=== PATIENT | female | born 1960 | race Two or more races ===

== ENCOUNTER 2017-10-31 20:25 | Emergency (ER) | payer BC ==
[~2017-10-31] VITALS: Ht 157.5 cm; Wt 87.4 kg
[~2017-10-31 20:25] MED LIST: NAPROSYN500 MG PO; PERCOCET 5/31 TABLET PO; PRILOSEC40 MG PO; ZOFRAN4 MG PO
[2017-10-31 21:14] LABS: HEMATOCRIT 40.1 % (36.0-46.0); HEMOGLOBIN 13.5 G/DL (11.9-15.5); MCH 29.5 PG (29.0-34.0); MCHC 33.7 G/DL (30.0-36.0); MCV 87.6 FL (83-99); PLATELET COUNT 256 K/uL (156-360); RBC DIS.WIDTH-CV 12.6 % (11.8-14.6); RBC DIS.WIDTH-SD 40.2 % (39-53); RED BLOOD COUNT 4.58 M/uL (3.80-5.20); WHITE BLOOD COUNT 12.4 K/uL (4.1-10.2)
[2017-10-31 21:24] LABS: ALBUMIN 4.4 g/dL (3.2-4.8); CHLORIDE 104 mEq/L (99-109); SODIUM 140 mEq/L (136-147)
[2017-10-31 21:26] LABS: GLUCOSE 139 mg/dL (70-99); TOTAL PROTEIN 8.3 g/dL (6.4-8.3)
[2017-10-31 21:28] LABS: TOTAL BILIRUBIN 0.3 mg/dL (0.0-1.0)
[2017-10-31 21:30] LABS: ALKALINE PHOSPHATASE 71 IU/L (3-129); CREATININE 0.8 mg/dL (0.6-1.3); GFR ESTIMATE (CALCULATED) > 59 mL/min/
[2017-10-31 21:31] LABS: AST (GOT) 36 IU/L (2-34); UREA NITROGEN (BUN) 15 mg/dL (9-23)
[2017-10-31 21:33] LABS: ALT (GPT) 41 IU/L (3-49)
[2017-10-31 21:35] LABS: QUANTITATIVE HCG < 4.0 MIU/ML
[2017-10-31 21:44] LABS: APPEARANCE CLEAR ((CLEAR)); BILIRUBIN NEGATIVE; BLOOD SMALL; COLOR STRAW ((YELLOW)); GLUCOSE (STRIP) NEGATIVE; KETONES NEGATIVE; LEUKOCYTES TRACE; NITRITE NEGATIVE; PROTEIN (STRIP) NEGATIVE; SPECIFIC GRAVITY 1.005 (1.000-1.030); UROBILINOGEN 0.2 MG/DL (0.2-1.0)
[2017-10-31 21:47] LABS: BACTERIA RARE /HPF; EPITHELIAL CELLS RARE /HPF; MUCUS NONE SEEN /LPF; RED BLOOD CELLS 0-5 /HPF (0-5); UCUL ADDED? NO; WHITE BLOOD CELLS 0-5 /HPF (0-5)
[2017-10-31] MEDS ORDERED: INDOCIN50 MG PO (22:39)
[2017-10-31] MEDS ORDERED: ZOFRAN ODT4 MG PO (22:39)
[2017-10-31 22:53] VITALS: BP 143/75
== END 2017-10-31 22:54 | disposition home or self-care (01) ==
LOC: EME 20:25
DX: M54.5 Low back pain (principal); K76.0 Fatty (change of) liver, not elsewhere classified; I10 Essential (primary) hypertension
CPT/HCPCS: 74176; 80053; 81003; 84702; 85027; 99281; 99284; J1885